=== PATIENT | female | born 1935 | race Caucasian/White ===

== ENCOUNTER 2018-01-17 22:09 | Emergency (ER) | payer MEDICARE, OTHER ==
[~2018-01-17] VITALS: Ht 160 cm; Wt 37.4 kg
[2018-01-17] MEDS ORDERED: BUPIVAcaine/PF 2.5 mg/ml (0.25%) 30ml vial IJ ONE (22:40)
[2018-01-17] MEDS ORDERED: bacitracin 15gm ointment TP ONE (22:40)
[2018-01-17] MEDS ORDERED: clindamycin 150mg capsule PO ONE (22:45)
[2018-01-17] MEDS ORDERED: CLIN150C2 PO (22:46)
[2018-01-17 23:12] VITALS: BP 143/86
== END 2018-01-18 00:17 | disposition home or self-care (01) ==
LOC: ER 22:09
DX: S61.452A Open bite of left hand, initial encounter (principal); Z86.73 Personal history of transient ischemic attack (TIA), and cerebral infarction without residual deficits; Z79.899 Other long term (current) drug therapy; W54.0XXA Bitten by dog, initial encounter; Y93.89 Activity, other specified; Y92.89 Other specified places as the place of occurrence of the external cause; Y99.8 Other external cause status
CPT/HCPCS: 12002; 73130; 99284; A6255; A6266; A6449; J3490; 12042; 99283